=== PATIENT | male | born 1960 | race Caucasian/White ===

== ENCOUNTER 2017-04-06 09:30 | Day surgery (SDC) | payer OTHER ==
[~2017-04-06] VITALS: Ht 180.3 cm; Wt 113.9 kg
[~2017-04-06 09:30] MED LIST: ALBU6.7H INH; ASPI-973 PO; CIPR-231 PO; Lactated Ringer's 1,000 ML IV SCH; TAMS0.4C98 PO; levoFLOXacin Inj 500 MG in IV Premix 1 EACH IV SCH
[2017-04-06 09:49] VITALS: BP 177/117; PULSE 106; RESP 20; O2SAT 97
[2017-04-06] MEDS ORDERED: Lactated Ringer's 1,000 ML IV SCH (10:06)
[2017-04-06] MEDS ORDERED: Lactated Ringer's 500 ML IV PRN (10:06)
[2017-04-06] MEDS ORDERED: hydrALAZINE 20 mg/mL Inj IVPUSH PRN (10:10)
[2017-04-06] MEDS ORDERED: Phenylephrine 10,000 mCg/mL Inj IVPUSH PRN (10:10)
[2017-04-06] MEDS ORDERED: MetoCLOpramide 5 mg/mL 2 mL Inj IVPUSH PRN (10:10)
[2017-04-06] MEDS ORDERED: fentaNYL-PF 50 mCg/mL 2 mL Inj IVPUSH PRN (10:10)
[2017-04-06] MEDS ORDERED: EPHEDrine Sulfate 50 mg/mL Inj IVPUSH PRN (10:10)
[2017-04-06] MEDS ORDERED: HYDROmorphone 1 mg/mL Inj IVPUSH PRN (10:10)
[2017-04-06] MEDS ORDERED: Dexamethasone 4 mg/mL Inj IVPUSH PRN (10:10)
[2017-04-06] MEDS ORDERED: Atropine 0.4 mg/mL Inj IVPUSH PRN (10:10)
[2017-04-06] MEDS ORDERED: Ondansetron 2 mg/mL 2 mL Inj IVPUSH PRN (10:10)
[2017-04-06] MEDS ORDERED: Labetalol 5 mg/mL 4 mL Inj IV PRN (10:10)
[2017-04-06 10:39] VITALS: BP 177/114
--- NOTE | 2017-04-06 10:52 | PCM.HPANE ---
Patient Data Date of Service: Apr 06, 2017 Surgeon Admitting Provider: Attending Provider:Flor Mejia MD Primary Care Physician:Kathy Flores Other Provider:Tahir Jay Anesthesia Reason for Visit Urinary Retention Ht/WT & BMI Height (Feet): 5 Height (Inches): 11 Weight (Kilograms): 113.9 Body Mass Index 35.00 Allergies Coded Allergies: No Known Allergies (Unverified , 04/05/17) Past Anesthesia History Anesthesia History: Denies:: Anesthesia Reactions, Malignant Hyperthermia Diabetes History Hx Diabetes?: No MRSA MRSA: No Medications Home Meds Incl Beta Burke: No Reported Medications Albuterol Sulfate (Proventil HFA Inhaler)6.7 Gm Hfa.aer.ad1 Puff INH Q4 PRN For Shortness of Breath #1 INHALER Ref 0 04/05/17 Aspirin 81 Mg [id number] Mg PO DAILY Ref 0 04/05/17 Tamsulosin (Flomax)0.4 Mg Capsule0.8 Mg PO DAILY Ref 0 04/05/17 Discontinued Reported Medications Ciprofloxacin (Cipro)500 Mg [id number] Mg PO BID Ref 0 04/05/17 History History of ENT Problems?: Yes HEENT History: Denies:: Abnormal Airway Difficult Intubation Denture Type: None Teeth Condition: Within Normal Limits Other HEENT Pertinent History: S/P TONSILLECTOMY Hx of Heart Problems?: Yes Cardiovascular History: Positive for:: Hypertension (pt states only since suffering from urinary retention. Untreated) Denies:: Heart Murmur Hx of Respiratory Problem?: Yes Respiratory History: Positive for:: Asthma (seasonal allergies) Denies:: Pneumonia (RECENT BOUT OF BRONCHITIS) Use of C-PAP Machine Hx Neurologic Problems?: No Hx of GI Problems?: No Hx of Problems?: Yes Other Pertinent History: URINARY RETENTION (REQUIRING [place] CATH)=CURRENT PROBLEM Male Hx: Positive for:: Prostate Problems (BPH=CURRENT PROBLEM) Denies:: Scrotal Mass Testicular Surgery Skin History: Denies:: History Skin Disorders? Pressure Ulcers Hx Musculoskeletal Problems?: No Hx of Psycho/Social Problems?: No Hx Surgeries?: Yes (TONSILLECTOMY) Hx Any Other Health Problems?: Yes Other History: Denies:: Cancer Endocrine Disease Hospitalization Thyroid Disease Hx Diabetes: No Hx Alcohol Use: NoHx Substance Use: No Smoking Status: Never Smoker Have You Smoked inLast 12 mo: No Stop/Bang Treated for Sleep Apnea?: No Do You Have a CPAP Machine?: No S-Snoring: Do You Snore Loudly: No T-Tired: feel tired, fatigued: No O-Obsered: Observed not breath: No P-Blood Pressure: treated: No B- Body Mass Index > 35 kg/m2: Yes A- Age over 50: Yes N- Neck Large Circumference: No G- Gender Male: Yes RENO Total Score: 3 RENO Risk Assessment: High Risk, =/>3 Yes RENO Category 4 OutPt Procedure: Yes Risk Assessment Category Category 1A: Patient has history of documented sleep apnea, and HAS NOT received any narcotic, sedative or anesthesia administration during this stay. Category 1B: Patient has history of documented sleep apnea, and HAS received any narcotic , sedative or anesthesia administration during this stay Category 2: Patient has SUSPECTED Obstructive Sleep Apnea, and HAS received any narcotic , sedative or anesthesia administration during this stay. Category 3: Patient has SUSPECTED Obstructive Sleep Apnea and HAS NOT received narcotic, sedative or anesthesia administration during this stay. Category 4: Outpatient in Procedural Areas with known sleep apnea or who screen positive for High Risk via the STOP/BANG questionnaire. Exam Exam Vital Signs Vital Signs Date Time Temp Pulse Resp B/P Pulse Ox O2 Delivery O2 Flow Rate FiO2 04/06/17 09:49 36.4 106 20 177/117 97 Room Air General Appearance: Alert, Oriented X3, Cooperative HEENT/AIRWAY: MP 3, Neck Movement (Full, neck), Mouth Opening (Wide) Lungs: Clear to Auscultation, Normal Air Movement Heart: Regular Rate/Rhythm, Normal S1, Normal S2 Plan Impression Patient chart reviewed, patient interviewed and anesthestic plan with risks, benefits, and alternatives discussed, and informed consent obtained. NPO per Anesth. Guidelines: Yes ASA Physical Status: ASA2 Mod Systemic Disease Anesthetic Plan: GA Bene/Risks/Altern/Consents: Yes HP Complete Prior to Induction: Yes Other Pt with severe hypertension, going back to his visit with Dr. Mejia last week. Blood pressures 182/117. 20 mg Hydralazine and 10 mg Labetalol given, 25 minutes later blood pressure in pre-op with only slight decreased to 164/ 111. Patient with uncontrolled hypertension, minimally responsive to meds. Discussed with Dr. Mejia, will delay case until patient undergoes evaluation and treatment by his PCP. Dr. Mejia will start [facility] today Long Pendleton MD Apr 06, 2017 10:05
== END 2017-04-06 23:59 | disposition home or self-care (01) ==
LOC: SAS 09:30
PROVIDERS: ATTEND Urology
DX: R33.9 Retention of urine, unspecified (principal); Z53.09 Procedure and treatment not carried out because of other contraindication

== ENCOUNTER → 2017-05-04 | Day surgery (SDC) | payer OTHER ==
[2017-05-04] VITALS (15 sets, daily range): BP systolic 91–157; BP diastolic 57–97; PULSE 68–111; RESP 12–20; O2SAT 87–98
[~2017-05-04] VITALS: Ht 180.3 cm; Wt 114.0 kg
[~2017-05-04] MED LIST changes: +AMLO10TA3 PO; -CIPR-231 PO; +Dexamethasone 4 mg/mL Inj IVPUSH PRN; +EPHEDrine Sulfate 50 mg/mL Inj IVPUSH PRN; +HYDROmorphone 1 mg/mL Inj IVPUSH PRN; +Lactated Ringer's 1,000 ML IV ONE; +Lactated Ringer's 500 ML IV PRN; +Levofloxacin 500 mg/100 mL D5W IV ONE; +MetoCLOpramide 5 mg/mL 2 mL Inj IVPUSH PRN; +Ondansetron 2 mg/mL 2 mL Inj IVPUSH PRN; +Phenylephrine 10,000 mCg/mL Inj IVPUSH PRN; +fentaNYL-PF 50 mCg/mL 2 mL Inj IVPUSH PRN; +levoFLOXacin 500 mg/100 mL D5W Premix IV ONE; -levoFLOXacin Inj 500 MG in IV Premix 1 EACH IV SCH
--- NOTE | 2017-05-04 07:44 | PCM.HPANE ---
Patient Data Surgeon Admitting Provider: Attending Provider:Flor Mejia MD Primary Care Physician:Melida Zeng Other Provider:Tahir Jay Anesthesia Reason for Visit Urinary Retention Ht/WT & BMI Height (Feet): 5 Height (Inches): 11 Weight (Kilograms): 116.12 Body Mass Index 35.00 Allergies Coded Allergies: No Known Allergies (Unverified , 04/05/17) Past Anesthesia History Anesthesia History: Denies:: Abnormal Airway, Anesthesia Reactions, Difficult Intubation, Malignant Hyperthermia Diabetes History Hx Diabetes?: No MRSA MRSA: No Medications Hypertension Medication: Yes Home Meds Incl Beta Burke: No Reported Medications Amlodipine 10 Mg [id number] Mg PO DAILY Ref 0 04/29/17 Albuterol Sulfate (Proventil HFA Inhaler)6.7 Gm Hfa.aer.ad1 Puff INH Q4 PRN For Shortness of Breath #1 INHALER Ref 0 04/05/17 Aspirin 81 Mg [id number] Mg PO DAILY Ref 0 04/05/17 Tamsulosin (Flomax)0.4 Mg Capsule0.8 Mg PO DAILY Ref 0 04/05/17 History History of ENT Problems?: Yes HEENT History: Denies:: Abnormal Airway Difficult Intubation Denture Type: None Teeth Condition: Within Normal Limits Hx of Heart Problems?: Yes Cardiovascular History: Positive for:: Hypertension (case cx 04/06- for htn, recently started atenolol for control) Denies:: Heart Murmur Hx of Respiratory Problem?: Yes Respiratory History: Positive for:: Asthma (seasonal allergies) Denies:: Pneumonia Use of C-PAP Machine Hx Neurologic Problems?: No Neurological History: Denies:: CVA Multiple Sclerosis Parkinson's Disease Seizures Hx of GI Problems?: No Hx of Problems?: Yes Other Pertinent History: urinary retention current admission problem Male Hx: Positive for:: Prostate Problems (BPH=CURRENT PROBLEM) Denies:: Scrotal Mass Testicular Surgery Skin History: Denies:: History Skin Disorders? Pressure Ulcers Hx Musculoskeletal Problems?: No Musculoskeletal History: Denies:: Fibromyalgia Joint Replacement Musculoskeletal Trauma Myasthenia Gravis Hx of Psycho/Social Problems?: No Hx Surgeries?: Yes (tonsillectomy ) Hx Any Other Health Problems?: Yes Other History: Denies:: Cancer Endocrine Disease Hospitalization Thyroid Disease Hx Diabetes: No Hx Alcohol Use: NoHx Substance Use: No Smoking Status: Never Smoker Have You Smoked inLast 12 mo: No Stop/Bang S-Snoring: Do You Snore Loudly: No T-Tired: feel tired, fatigued: No O-Obsered: Observed not breath: No P-Blood Pressure: treated: Yes B- Body Mass Index > 35 kg/m2: No A- Age over 50: Yes N- Neck Large Circumference: No G- Gender Male: Yes RENO Total Score: 3 RENO Risk Assessment: High Risk, =/>3 Yes RENO Category 4 OutPt Procedure: Yes Risk Assessment Category Category 1A: Patient has history of documented sleep apnea, and HAS NOT received any narcotic, sedative or anesthesia administration during this stay. Category 1B: Patient has history of documented sleep apnea, and HAS received any narcotic , sedative or anesthesia administration during this stay Category 2: Patient has SUSPECTED Obstructive Sleep Apnea, and HAS received any narcotic , sedative or anesthesia administration during this stay. Category 3: Patient has SUSPECTED Obstructive Sleep Apnea and HAS NOT received narcotic, sedative or anesthesia administration during this stay. Category 4: Outpatient in Procedural Areas with known sleep apnea or who screen positive for High Risk via the STOP/BANG questionnaire. Exam Exam General Appearance: Alert, Oriented X3, Cooperative, No Acute Distress HEENT/AIRWAY: MP 2 Lungs: Clear to Auscultation, Normal Air Movement Heart: Exam Unremarkable, Regular Rate/Rhythm, No Murmurs/Rubs/Gallops Plan Impression Patient chart reviewed, patient interviewed and anesthestic plan with risks, benefits, and alternatives discussed, and informed consent obtained. NPO per Anesth. Guidelines: Yes ASA Physical Status: ASA2 Mod Systemic Disease Anesthetic Plan: GA Bene/Risks/Altern/Consents: Yes HP Complete Prior to Induction: Yes Arnaud Damian MD May 04, 2017 07:44
[2017-05-04] MEDS: HYDROcodone-APAP 5-325 mg Tablet PO PRN ×2 (14:11→14:59)
--- NOTE | 2017-05-04 14:26 | PCM.ANEP1 ---
Post Anesthesia PACU Phase 1 Assessment Vital Signs Vital Signs Date Time Temp Pulse Resp B/P Pulse Ox O2 Delivery O2 Flow Rate FiO2 05/04/17 13:50 36.0 80 14 139/79 95 Nasal Cannula 2 05/04/17 13:38 36 74 13 128/82 94 Nasal Cannula 4 05/04/17 13:28 77 18 114/73 94 Nasal Cannula 4 05/04/17 13:23 80 12 131/84 95 Nasal Cannula 4 05/04/17 13:11 81 17 120/81 95 Non-Rebreather 10 05/04/17 13:03 81 16 110/75 95 Non-Rebreather 10 05/04/17 12:58 84 15 99/70 94 Non-Rebreather 10 05/04/17 12:50 88 20 99/70 92 Non-Rebreather 10 05/04/17 12:45 90 14 91/57 89 Simple Mask 10 05/04/17 12:40 36.5 92 12 101/71 87 Simple Mask 10 05/04/17 08:44 36.8 111 17 157/97 97 Room Air Anesthetic Administered: GA Level of Alertness: Awake, talking SANCHEZ's with Equal Strength: Yes Pain: No Nausea or Vomiting: No CV Function & Hydration Stable: Yes Airway Device: Nasal Airway Oxygen Delivery: Simple Mask Lungs: Clear to Auscultation, Normal Air Movement Dermatome Level: Full Sensation PACU Phase 2 Assessment Complications: No Follow up Care: No Patient Instructions Provided: N/A Arnaud Damian MD May 04, 2017 14:26
--- NOTE | 2017-05-04 15:16 | OP ---
[address] [address] OPERATIVE REPORT PATIENT: ISABEL HERNANDEZ : 1960 MR#: [id number] ADMIT: 05/04/2017 JOB ID: [id number] DATE OF SURGERY: 05/04/2017 PREOPERATIVE DIAGNOSIS(ES): Urinary retention. POSTOPERATIVE DIAGNOSIS(ES): Urinary retention. PROCEDURE PERFORMED: Cystoscopy and transurethral resection of prostate. SURGEON: Flor Mejia MD STORE MANAGEMENT TRAINEE: None. FINDINGS: 1. Trilobar hypertrophy of the prostate with intravesical lobes. 2. Hypervascular prostate with innumerable prostatic varices. 3. Bilateral orthotopic ureteral orifices. 4. No trabeculation. ANESTHESIA: General. ESTIMATED BLOOD LOSS: 25 mL. DRAINS: An 18-Jamaican Gayle catheter to the bladder. SPECIMENS: Prostate chips. COMPLICATIONS: None. CONDITION: Stable. INDICATION FOR PROCEDURE: The patient is a 57-year-old gentleman with history of acute urinary retention after an upper respiratory infection. He could not resolve the urinary retention in spite of medical management. Cystoscopy revealed trilobar hypertrophy of the prostate. He now presents for the aforementioned procedure. DESCRIPTION OF PROCEDURE: After informed consent was obtained, the patient was taken to the operating room. A time-out was performed identifying correct patient, surgical site, and procedure. General anesthesia was induced. He was placed in the lithotomy position and all pressure points were identified and appropriately padded. He was given intravenous antibiotics prior to the start of the procedure. His genitals were then prepped and draped in the usual sterile fashion. A 26-Jamaican resectoscope was applied to the patient's urethra and advanced into the bladder as seen under direct vision. The bladder was systematically inspected. The right ureteral orifice was seen in orthotopic position. The left ureteral orifice could not be seen until the intravesical lobe had been resected. The resection commenced with a 24-Jamaican loop. Resection began at the median lobe, which was quite large. Resection then commenced to the right lobe, which was taken down in piecemeal fashion, with resection then commencing to the left lobe. The prostate was extremely large. The prostate chips were evacuated with the NeuroVista evacuator intermittently throughout the procedure. At the end the end of the procedure there was excellent hemostasis and all the chips had been collected. Both ureteral orifices were seen at the end of the procedure as undisturbed during the course of the resection. An 18-Jamaican coude catheter was placed in the patient's bladder and insufflated with 20 mL of sterile water and set to dependent drainage. The patient was then reversed from general anesthesia and taken to the PACU in good and stable condition. GONZÁLEZ
--- NOTE | 2017-05-05 15:42 | PATH ---
SURGICAL PATHOLOGY Attending Physician:Flor Mejia, CASE STATUS: Signed Out PATIENT NAME: ISABEL HERNANDEZ PID: [id number] : 1960 DATE COLLECTED:05/04/2017 20:12 SPECIMEN: Prostate, Chips CLINICAL HISTORY: URINARY RETENTION 1). PROSTATE CHIPS FINAL DIAGNOSIS: 1.PROSTATE, TUR FRAGMENTS: BENIGN FIBROGLANDULAR HYPERPLASIA. MILD CHRONIC PROSTATITIS. NO EVIDENCE OF MALIGNANCY. ICD10 N40.1 GROSS DESCRIPTION: The specimen is received in one formalin filled container labeled with the patient's name, sublabeled "prostate chips" and consists of multiple portions of tissue which aggregate to 7.5 x 6.5 x 3.0 CM. Specimen weighs 44 g in total. Rep. sections are submitted in cassettes A- K. 05/04/2017DC MICRO DESCRIPTION: See diagnosis. ICD-9 CODES: CPT CODES: 1: 34915 Electronically Signed Out Ileana Serrano MD [facility] [address], [place] [address] Technical component performed at [facility], [facility] [address], [place], [address]
== END | disposition home or self-care (01) ==
LOC: SAS 07:39
PROVIDERS: ATTEND Urology
DX: N41.1 Chronic prostatitis (principal); R33.9 Retention of urine, unspecified; N40.1 Benign prostatic hyperplasia with lower urinary tract symptoms; Z79.82 Long term (current) use of aspirin
CPT/HCPCS: 52601; J2405; J2765; J3010; J7120